=== PATIENT | female | born 1955 | race Caucasian/White ===

== ENCOUNTER 2019-05-08 16:39 | Emergency (ER) | payer OTHER ==
[~2019-05-08] VITALS: Ht 165.1 cm; Wt 140.7 kg
[2019-05-08] MEDS ORDERED: EPINEPHrine 1 MG/ML VIAL IM ONE (17:00)
[2019-05-08] MEDS ORDERED: FAMOTIDINE 20 MG/2 ML VIAL IVP ONE (17:00)
[2019-05-08] MEDS ORDERED: methylPREDNISolone SOD SUCC PF 125 MG/2 ML VIAL. IV ONE (17:00)
[2019-05-08] MEDS ORDERED: diphenhydrAMINE 50 MG/ML VIAL IV ONE (17:00)
[2019-05-08 17:24] LABS: BASO % 1 % (0-3); EOS # 0.3 x10^3/uL (0.0-0.7); EOS % 3 % (0-3); HEMATOCRIT 37.7 % (36.0-47.0); HEMOGLOBIN 12.9 g/dL (12.0-15.5); LYMPH # 2.1 x10^3/uL (1.0-4.8); LYMPH % 28 % (24-48); MEAN CORPUSCULAR HEMOGLOBIN 32 pg (25-35); MEAN CORPUSCULAR HGB CONC 34 g/dL (31-37); MEAN CORPUSCULAR VOLUME 94 fL (79-100); MONO # 0.6 x10^3/uL (0.0-1.1); MONO % 8 % (0-9); NEUT # 4.7 x10^3/uL (1.8-7.7); NEUT % 61 % (31-73); PLATELET COUNT 264 x10^3/uL (140-400); RED BLOOD COUNT 4.01 x10^6/uL (3.50-5.40); RED CELL DISTRIBUTION WIDTH 13.6 % (11.5-14.5); WHITE BLOOD COUNT 7.7 x10^3/uL (4.0-11.0)
[2019-05-08 17:45] LABS: CALCIUM 9.6 mg/dL (8.5-10.1); GFR 55.8; POTASSIUM 3.9 mmol/L (3.5-5.1)
[2019-05-08 17:49] LABS: ALBUMIN 3.5 g/dL (3.4-5.0); ALBUMIN/GLOBULIN RATIO 0.8 (1.0-1.7); TOTAL BILIRUBIN 0.3 mg/dL (0.2-1.0); TOTAL PROTEIN 7.9 g/dL (6.4-8.2)
--- NOTE | 2019-05-08 17:50 | PHYS DOC ---
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 Patient states that she periodically has similar episodes where her lips swell her tongue swells. She states that they typically resolve spontaneously but she does come into the emergency room she has swelling of her tongue. She does admit to being on an NATASHA inhibitor but states that she has not been told to stop the NATASHA inhibitor because this is been long ongoing issue. She denies any shortness of breath but does admit to a little bit of difficulty swallowing due to the swelling of her tongue.[] (CK MCHUGH Jr., DO) Review of Systems Review of Systems Constitutional: Denies fever or chills [] HENT: Positive tongue swelling[] Respiratory: Denies cough or shortness of breath [] Cardiovascular: No additional information not addressed in HPI [] Integument: Denies rash or skin lesions [] All other systems were reviewed and found to be within normal limits, except as documented in this note. (CK MCHUGH Jr., DO) Current Medications Current Medications Current Medications Medications (Trade) Dose Ordered Sig/Bee Start Time Stop Time Status Last Admin Dose Admin Diphenhydramine HCl (Benadryl) 50 mg 1X ONCE 05/08/19 17:00 05/08/19 17:01 DC 05/08/19 17:03 50 MG Epinephrine HCl (Adrenalin) 0.3 mg 1X ONCE 05/08/19 17:00 05/08/19 17:01 DC 05/08/19 17:06 0.3 MG Famotidine (Pepcid Vial) 20 mg 1X ONCE 05/08/19 17:00 05/08/19 17:01 DC 05/08/19 17:07 20 MG Info (CONTRAST GIVEN -- Rx MONITORING) 1 each PRN DAILY PRN 05/08/19 19:00 05/10/19 18:59 Iohexol (Omnipaque 300 Mg/ml) 60 ml 1X ONCE 05/08/19 19:00 05/08/19 19:01 DC Methylprednisolone Sodium Succinate (SOLU-Medrol 125MG VIAL) 125 mg 1X ONCE 05/08/19 17:00 05/08/19 17:01 DC 05/08/19 17:10 125 MG (MELANY STONER MD) Allergies Allergies Allergies Coded Allergies Type Severity Reaction Last Updated Verified No Known Drug Allergies 05/08/19 No (MELANY STONER MD) Physical Exam Physical Exam Constitutional: Well developed, well nourished, no acute distress, non-toxic appearance. [] HENT: Normocephalic, atraumatic, bilateral external ears normal, oropharynx mois t, tongue demonstrates moderate swelling on the right half of tongue. [] Eyes: PERRLA, EOMI, conjunctiva normal, no discharge. [] Neck: Normal range of motion, no tenderness, supple, no stridor. [] Cardiovascular: Regular rate and rhythm[] Lungs & Thorax: Bilateral breath sounds clear to auscultation [] Abdomen: Bowel sounds normal, soft, no tenderness. [] Skin: Warm, dry, no erythema, no rash. [] Extremities: No tenderness, no cyanosis, no clubbing, ROM intact, no edema. [] Neurologic: Alert and oriented X 3, no focal deficits noted. [] (CK MCHUGH Jr. DO) Current Patient Data Vital Signs Vital Signs Date Time Temp Pulse Resp B/P (MAP) Pulse Ox O2 Delivery O2 Flow Rate FiO2 05/08/19 18:22 96 20 131/65 (87) 97 Room Air 05/08/19 16:45 98.5 98.5 (MELANY STONER MD) Lab Values Laboratory Tests Test 05/08/19 16:56 White Blood Count 7.7 x10^3/uL (4.0-11.0) Red Blood Count 4.01 x10^6/uL (3.50-5.40) Hemoglobin 12.9 g/dL (12.0-15.5) Hematocrit 37.7 % (36.0-47.0) Mean Corpuscular Volume 94 fL (79-100) Mean Corpuscular Hemoglobin 32 pg (25-35) Mean Corpuscular Hemoglobin Concent 34 g/dL (31-37) Red Cell Distribution Width 13.6 % (11.5-14.5) Platelet Count 264 x10^3/uL (140-400) Neutrophils (%) (Auto) 61 % (31-73) Lymphocytes (%) (Auto) 28 % (24-48) Monocytes (%) (Auto) 8 % (0-9) Eosinophils (%) (Auto) 3 % (0-3) Basophils (%) (Auto) 1 % (0-3) Neutrophils # (Auto) 4.7 x10^3/uL (1.8-7.7) Lymphocytes # (Auto) 2.1 x10^3/uL (1.0-4.8) Monocytes # (Auto) 0.6 x10^3/uL (0.0-1.1) Eosinophils # (Auto) 0.3 x10^3/uL (0.0-0.7) Basophils # (Auto) 0.0 x10^3/uL (0.0-0.2) Sodium Level 141 mmol/L (136-145) Potassium Level 3.9 mmol/L (3.5-5.1) Chloride Level 104 mmol/L (98-107) Carbon Dioxide Level 28 mmol/L (21-32) Anion Gap 9 (6-14) Blood Urea Nitrogen 18 mg/dL (7-20) Creatinine 1.0 mg/dL (0.6-1.0) Estimated GFR (Cockcroft-Gault) 55.8 BUN/Creatinine Ratio 18 (6-20) Glucose Level 143 mg/dL (70-99) H Calcium Level 9.6 mg/dL (8.5-10.1) Total Bilirubin 0.3 mg/dL (0.2-1.0) Aspartate Amino Transferase (AST) 32 U/L (15-37) Alanine Aminotransferase (ALT) 31 U/L (14-59) Alkaline Phosphatase 118 U/L (46-116) H Total Protein 7.9 g/dL (6.4-8.2) Albumin 3.5 g/dL (3.4-5.0) Albumin/Globulin Ratio 0.8 (1.0-1.7) L Laboratory Tests 05/08/19 16:56 Laboratory Tests 05/08/19 16:56 (MELANY STONER MD) EKG EKG [] (CK MCHUGH Jr., DO) Radiology/Procedures Radiology/Procedures [] (CK MCHUGH Jr., DO) Radiology/Procedures [facility] [address] [place] [address] IMAGING REPORT Signed PATIENT: ROBIN FRANZ ACCOUNT: [id number] : 1955 LOCATION: ER AGE: 64 SEX: F EXAM STATUS: REG ER ORD. PHYSICIAN: CK MCHUGH Jr., DO REASON: poss salivary stone/abscess w/ tongue swelling PROCEDURE: CT MAXILLOFACIAL W/CONTRAST PQRS Compliance statement: One or more of the following individualized dose reduction techniques were utilized for this examination: 1. Automated exposure control. 2. Adjustment of the mA and/or kV according to patient size. 3. Use of iterative reconstruction technique. Indication:Possibly salivary stone. Abscess. Tongue swelling. TECHNIQUE: CT of the maxillofacial with IV contrast multiplanar reformats. COMPARISON: None FINDINGS: Visualized sections through the brain and orbits are within normal limits. The nasopharynx, hypopharynx within normal limits. Progression of oral cavity is limited due to streak artifact from dental procedure. Soft tissue fullness is seen in the region of right palatine tonsil. No fluid collection. The submandibular glands and visualized parotid glands are within normal limits. The airways patent. No enlarged suprahyoid lymph nodes. Near-complete opacification is seen of the left maxillary sinus. Rest of the paranasal sinuses and mastoid air cells are clear. No acute fractures. Bilateral temporal mandible joints and mandible are within normal limits. Visualized upper cervical spine is within normal limits. IMPRESSION: Limited evaluation of oral cavity due to dental artifact. 1. Soft tissue fullness in the region of right tonsil. This may be secondary to tonsillitis although malignancy not ruled out. Direct visualization recommended. 2. No abscess. 3. No calcific density in the salivary glands to suggest sialolith. 4. Chronic left maxillary sinus disease. Electronically signed by: Geovany Mack DO (05/08/2019 7:12 PM) [facility] DICTATED and SIGNED BY: GEOVANY MACK DO (MELANY STONER MD) Course & Med Decision Making Course & Med Decision Making Pertinent Labs and Imaging studies reviewed. (See chart for details) [] (CK MCHUGH Jr., DO) Course & Med Decision Making Patient feels better. CT did not show acute finding. Patient currently is taking lisinopril and had episodes of angioedema previously and was advised to stop li sinopril but still taking the medication. Patient was advised to stop lisinopril and plan to give prescription for losartan. Plan discharge patient home with diagnosis of acute allergic reaction to lisinopril. (MELANY STONER MD) Dragon Disclaimer Dragon Disclaimer This electronic medical record was generated, in whole or in part, using a voice recognition dictation system. (CK MCHUGH Jr., DO) Departure Departure Impression: Primary Impression: Allergic reaction Additional Impression: Angioedema Disposition: HOME, SELF-CARE (at 1946) Condition: IMPROVED Referrals: GILLES HERNANDEZ (PCP) Patient Instructions: Angioedema Additional Instructions: Stop taking lisinopril. Follow-up with your primary care physician in 3-5 days Return to ER if not getting better Scripts Losartan Potassium (LOSARTAN POTASSIUM) 50 Mg Tablet 50 MG PO DAILY for HYPERTENSION, #30 TAB Prov: MELANY STONER MD 05/08/19 Problem Qualifiers Primary Impression: Allergic reaction Encounter type: initial encounter Qualified Codes: T78.40XA - Allergy, unspecified, initial encounter Additional Impression: Angioedema Encounter type: subsequent encounter Qualified Codes: T78.3XXD - Angioneurotic edema, subsequent encounter CK MCHUGH Jr., DO May 08, 2019 17:50 MELANY STONER MD May 08, 2019 19:48
[2019-05-08 18:22] VITALS: BP 131/65
[2019-05-08] MEDS ORDERED: CONTRAST GIVEN. MC PRN (19:00)
[2019-05-08] MEDS ORDERED: IOHEXOL 300 MG/ML 100ML VIAL. IJ ONE (19:00)
--- NOTE | 2019-05-08 19:15 | RAD ---
PQRS Compliance statement: One or more of the following individualized dose reduction techniques were utilized for this examination: 1. Automated exposure control. 2. Adjustment of the mA and/or kV according to patient size. 3. Use of iterative reconstruction technique. Indication:Possibly salivary stone. Abscess. Tongue swelling. TECHNIQUE: CT of the maxillofacial with IV contrast multiplanar reformats. COMPARISON: None FINDINGS: Visualized sections through the brain and orbits are within normal limits. The nasopharynx, hypopharynx within normal limits. Progression of oral cavity is limited due to streak artifact from dental procedure. Soft tissue fullness is seen in the region of right palatine tonsil. No fluid collection. The submandibular glands and visualized parotid glands are within normal limits. The airways patent. No enlarged suprahyoid lymph nodes. Near-complete opacification is seen of the left maxillary sinus. Rest of the paranasal sinuses and mastoid air cells are clear. No acute fractures. Bilateral temporal mandible joints and mandible are within normal limits. Visualized upper cervical spine is within normal limits. IMPRESSION: Limited evaluation of oral cavity due to dental artifact. 1. Soft tissue fullness in the region of right tonsil. This may be secondary to tonsillitis although malignancy not ruled out. Direct visualization recommended. 2. No abscess. 3. No calcific density in the salivary glands to suggest sialolith. 4. Chronic left maxillary sinus disease. Electronically signed by: Geovany Mack DO (05/08/2019 7:12 PM) [facility]
[2019-05-08] MEDS ORDERED: LOSA-73 PO (19:47)
== END 2019-05-08 19:50 | disposition home or self-care (01) ==
LOC: ER 16:39
DX: T78.40XA Allergy, unspecified, initial encounter (principal); T78.3XXA Angioneurotic edema, initial encounter; I10 Essential (primary) hypertension; Z96.659 Presence of unspecified artificial knee joint; Z87.891 Personal history of nicotine dependence; X58.XXXA Exposure to other specified factors, initial encounter
CPT/HCPCS: 36415; 70487; 80053; 85025; 96372; 96374; 96375; 99285; J0171; J1200; J2930; J3490